=== PATIENT | male | born 1950 | race Caucasian/White ===

== ENCOUNTER 2020-08-28 06:05 | Day surgery (SDC) | payer OTHER ==
[~2020-08-28] VITALS: Ht 177.8 cm; Wt 98.0 kg
[~2020-08-28 06:05] MED LIST: AMLO10 PO; ASPI81CH PO; ATOR20 PO; Aspir 8181 MG PO; CLOP75 PO; DOCU100 PO; FLUO20 PO; HYDACE10B PO; HYDACE5 PO; HYDCHL25 PO; LISI20 PO; METO25ER PO; METO50ER PO; METPRE4DP PO; MULVITB&C PO; MULVITMINF PO; NITR.4SL SL; NITRODUR TOP; Norco 10-325 T1 EACH PO; OLME20 PO; OMEP20ER PO; OXYACE5T PO; PANT40 PO; Prilosec Otc20 MG PO; Prilosec20 MG PO; Prinivil10 MG PO; Prozac20 MG; Prozac40 MG PO; SIMV10 PO; Toprol Xl25 MG PO; VICODIN HP 10-1 EACH PO
--- NOTE | 2020-08-28 09:09 | NUR ---
PT VSS STABLE, DR SANCHEZ IN MULTIPLE TIMES, PT DISORIENTED AND PLAN IS TO BRING IN TO REVIEW PLAN OF CARE, PT SHIVERING, PLACED WARM BLANKETS AND AIR WARMER AN PT SLEEPING NOW. PLAN EARLIER WAS TO SEND TO [facility] FOR PCI, NO BEDS SO THEN PLAN WAS TO ADMIT BUT AT PRESENT MAY SEND PT HOME AFTER DISCUSSION WITH
--- NOTE | 2020-08-28 09:30 | NUR ---
PT S/O, SHITAL TO RECOVERY DISCUSSING PLAN OF CARE WITH PATIENT AND DR SANCHEZ. VSS. PT R RADIAL REMAINS STABLE. NO BLEEDING OR HEMATOMA NOTED
--- NOTE | 2020-08-28 10:15 | NUR ---
PT AND S/O RESTING COMFORTABLY. PT AND S/O HAVE DECIDED TO AWAIT THIS Thursday08/31/2020 FOR PT PCI OF LAD. PT WILL REST AT HOME AND NOT EXERT SELF UNTIL THEN. PT ADVISED TO GO TO EMERGENCY ROOM WITH ANY CP OR SYMPTOMS. PT AND S/O VERBALIZES UNDERSTANDING. DR SANCHEZ MADE AWARE, AND WILL SCHEDULE PATIENT FOR THIS THURSDAY.
--- NOTE | 2020-08-28 10:19 | NUR ---
ATTEMPTED TO RELEASE AIR FROM TR BAND. BLEEDING NOTED. TR BAND REINFLATED.
--- NOTE | 2020-08-28 10:45 | NUR ---
AIR FULLY DEPLOYED. NO BLEEDING OR HEMATOMA NOTED AT SITE. VSS. NADN. PT DENIES PAIN. PT AND S/O VERBALIZES UNDERSTANDING WRITTEN AND VERBAL ORDERS.
--- NOTE | 2020-08-28 11:00 | NUR ---
PT A&O X 4 PT DRESSES SELF WITHOUT DIFF. NADN. VSS. PT TR BAND REMOVED. DOT DRESSING APPLIED. PT R RADIAL REMAINS STABLE. SPLINT/ SLING APPLIED. PT IV DC'D. CATH INTACT. PRESSURE DSG APPLIED. PT DC'D TO HOME VIA S/O BY .
[2020-08-28] MEDS ORDERED: ATOR20 PO (11:31)
== END 2020-08-28 11:00 | disposition home or self-care (01) ==
LOC: MHTC 06:05
PROC: B2111ZZ Fluoroscopy of Multiple Coronary Arteries using Low Osmolar Contrast (ICD-10-PCS; principal; 2020-08-28)
DX: I25.118 Atherosclerotic heart disease of native coronary artery with other forms of angina pectoris (principal); I11.0 Hypertensive heart disease with heart failure; I50.9 Heart failure, unspecified; I45.10 Unspecified right bundle-branch block; I47.1 Supraventricular tachycardia; E78.5 Hyperlipidemia, unspecified; K21.9 Gastro-esophageal reflux disease without esophagitis; G89.29 Other chronic pain; M54.16 Radiculopathy, lumbar region; E66.9 Obesity, unspecified; Z86.73 Personal history of transient ischemic attack (TIA), and cerebral infarction without residual deficits; Z79.02 Long term (current) use of antithrombotics/antiplatelets; Z79.899 Other long term (current) drug therapy; Z79.82 Long term (current) use of aspirin; Z95.0 Presence of cardiac pacemaker; Z68.30 Body mass index [BMI] 30.0-30.9, adult; Z87.891 Personal history of nicotine dependence; Z88.8 Allergy status to other drugs, medicaments and biological substances
CPT/HCPCS: 93454; 99152; 99153; A9270; C1769; C1894; J1644; J2250; J3010; J7030; J7050; Q9967

== ENCOUNTER 2020-08-31 07:02 | Day surgery (SDC) | payer OTHER ==
[~2020-08-31] VITALS: Ht 177.8 cm; Wt 96.0 kg
[2020-08-31 07:33] LABS: BASOPHILS ABSOLUTE AUTO 0.03 K/mm3 (0.00-0.23); BASOPHILS PERCENT AUTO 1 % (0-2); EOSINOPHILS ABSOLUTE AUTO 0.25 K/mm3 (0.00-0.68); EOSINOPHILS PERCENT AUTO 5 % (0-6); Hematocrit 30.7 % (37.0-53.0); Hemoglobin 8.5 g/dL (13.5-17.5); IMMATURE GRAN ABSOLUTE AUTO 0.02 K/mm3 (0.00-0.10); IMMATURE GRAN PERCENT AUTO 0 % (0-1); LYMPHOCYTES ABSOLUTE AUTO 1.73 K/mm3 (0.84-5.20); LYMPHOCYTES PERCENT AUTO 32 % (21-46); MONOCYTES ABSOLUTE AUTO 0.54 K/mm3 (0.16-1.47); MONOCYTES PERCENT AUTO 10 % (4-13); Mean Corpuscular HGB 21.9 pg (26.0-34.0); Mean Corpuscular HGB Conc 27.7 g/dL (31.5-36.5); Mean Corpuscular Volume 79 fL (80-100); NEUTROPHILS ABSOLUTE AUTO 2.77 K/mm3 (1.96-9.15); NEUTROPHILS PERCENT AUTO 52 % (41-73); Platelet Count 346 K/mm3 (150-400); RDW Coefficient Variation 25.7 % (11.7-14.2); RDW Standard Deviation 70.9 fL (35.1-46.3); Red Blood Cell Count 3.88 M/mm3 (4.30-5.90); White Blood Cell Count 5.34 K/mm3 (4.00-11.30)
[2020-08-31 07:56] LABS: Anion Gap 5 mmol/L (6-16); Blood Urea Nitrogen 26 mg/dL (8-24); Bun/Creatinine Ratio 25.7 (12.0-20.0); CO2, Blood 27 mmol/L (21-32); Calcium, Blood 8.4 mg/dL (8.5-10.1); Chloride, Blood 110 mmol/L (98-108); Creatinine, Blood 1.01 mg/dL (0.60-1.20); Glomerular Filtration Rate >60 (60-); Glucose, Blood 103 mg/dL (70-99); Potassium, Blood 4.6 mmol/L (3.5-5.5); Sodium, Blood 142 mmol/L (136-145)
--- NOTE | 2020-08-31 09:31 | NUR ---
PT RETURN TO RECOVERY ROOM IN RECLINER, RIGHT RADIAL TR BAND SITE SOFT NON-TENDER WITH NO HEMATOMA, NO PULSATILE BLEEDING. PT DENIES CP. CALL LIGHT IN REACH. PT'S IN ROOM.
--- NOTE | 2020-08-31 10:17 | NUR ---
PT EATING BREAKFAST.
--- NOTE | 2020-08-31 10:39 | NUR ---
DR CONKLIN IN ROOM TO SEE PT.
--- NOTE | 2020-08-31 11:26 | NUR ---
SBAR FROM KARIN WESTON. PATEIMT IN RECLINER AND WATCHING TV. BEGAN REMOVING AIR FROM THE TR BAND TO THE RIGHT RADIAL. NO BLEEDING NOTED.
--- NOTE | 2020-08-31 11:37 | NUR ---
TR BAND FLAT, NO BLEEDING NOTED. VVS. RELAXING IN RECLINER, NO PAIN NOTED FROM JESSI PATIENT, CALL LIGHT IN REACH.
--- NOTE | 2020-08-31 13:32 | NUR ---
DEFLATED RIGHT TR BAND REMOVED AND POLYMEM PLACED OVER RIGHT RADIAL SITE; NO HEMATOMA, NO PULSATILE BLEEDING SOFT AND WRIST BOARD IN PLACE. DISCHARGE INSTRUCTIONS REVIEWED AND ALL QUESTIONS ANSWERED. PT AMBULATED TO BR TO VOID. CALL LIGHT IN REACH.
--- NOTE | 2020-08-31 14:43 | NUR ---
NO CHANGES TO RIGHT RADIAL SITE; NO HEMATOMA, NO PULSATILE BLEEDING AND SOFT WITH POLYMEM AND WRIST BOARD IN PLACE. 20 G IV DISCONTINUED FROM LEFT AC WITH INTACT CANNULA. PT ESCORTED OUT VIA WHEELCHAIR ESCORT.
== END 2020-08-31 14:45 | disposition home or self-care (01) ==
LOC: MHTC 07:02
PROVIDERS: Internal Medicine Interventional Cardiology
PROC: B2111ZZ Fluoroscopy of Multiple Coronary Arteries using Low Osmolar Contrast (ICD-10-PCS; principal; 2020-08-31)
PROC: 027034Z Dilation of Coronary Artery, One Artery with Drug-eluting Intraluminal Device, Percutaneous Approach (ICD-10-PCS; principal; 2020-08-31)
DX: I25.118 Atherosclerotic heart disease of native coronary artery with other forms of angina pectoris (principal); I11.0 Hypertensive heart disease with heart failure; I50.9 Heart failure, unspecified; E66.3 Overweight; I47.1 Supraventricular tachycardia; I45.10 Unspecified right bundle-branch block; Z79.02 Long term (current) use of antithrombotics/antiplatelets; Z79.899 Other long term (current) drug therapy; Z79.82 Long term (current) use of aspirin; Z20.822 Contact with and (suspected) exposure to COVID-19; Z86.73 Personal history of transient ischemic attack (TIA), and cerebral infarction without residual deficits; Z95.0 Presence of cardiac pacemaker; Z68.41 Body mass index [BMI] 40.0-44.9, adult
CPT/HCPCS: 76937; 80048; 85025; 85347; 99152; 99153; A9270-GY; C1769; C1874; C1887; C1894; C9600; J1644; J2405; J3010; J7030; J7050; Q9967

== ENCOUNTER 2021-02-18 11:10 | Observation (INO) | payer OTHER ==
[~2021-02-18] VITALS: Ht 175.3 cm; Wt 96.9 kg
[~2021-02-18 11:10] MED LIST changes: -HYDACE10B PO
[2021-02-18 12:02] LABS: BASOPHILS ABSOLUTE AUTO 0.02 K/mm3 (0.00-0.23); BASOPHILS PERCENT AUTO 0 % (0-2); EOSINOPHILS ABSOLUTE AUTO 0.08 K/mm3 (0.00-0.68); EOSINOPHILS PERCENT AUTO 1 % (0-6); Hematocrit 39.3 % (37.0-53.0); Hemoglobin 12.6 g/dL (13.5-17.5); IMMATURE GRAN ABSOLUTE AUTO 0.01 K/mm3 (0.00-0.10); IMMATURE GRAN PERCENT AUTO 0 % (0-1); LYMPHOCYTES ABSOLUTE AUTO 2.33 K/mm3 (0.84-5.20); LYMPHOCYTES PERCENT AUTO 29 % (21-46); MONOCYTES PERCENT AUTO 7 % (4-13); Mean Corpuscular HGB 28.5 pg (26.0-34.0); Mean Corpuscular HGB Conc 32.1 g/dL (31.5-36.5); Mean Corpuscular Volume 89 fL (80-100); Mean Platelet Volume 9.4 fL (9.1-12.4); NEUTROPHILS ABSOLUTE AUTO 5.04 K/mm3 (1.96-9.15); NEUTROPHILS PERCENT AUTO 63 % (41-73); Platelet Count 335 K/mm3 (150-400); RDW Coefficient Variation 17.7 % (11.7-14.2); RDW Standard Deviation 58.4 fL (35.1-46.3); Red Blood Cell Count 4.42 M/mm3 (4.30-5.90); White Blood Cell Count 8.08 K/mm3 (4.00-11.30)
[2021-02-18 12:13] LABS: Alanine Aminotransfer (ALT/SGP 29 U/L (12-78); Albumin, Blood 3.6 g/dL (3.4-5.0); Albumin/Globulin Ratio 1.1 (0.8-1.8); Alk Phos 36 U/L (50-136); Anion Gap 4 mmol/L (6-16); Aspartate Aminotrans (AST/SGOT 17 U/L (12-37); Bilirubin, Total 0.4 mg/dL (0.1-1.0); Blood Urea Nitrogen 14 mg/dL (8-24); Bun/Creatinine Ratio 15.6 (12.0-20.0); CO2, Blood 27 mmol/L (21-32); Calcium, Blood 8.8 mg/dL (8.5-10.1); Chloride, Blood 108 mmol/L (98-108); Globulin, Blood 3.3 g/dL (2.2-4.0); Glomerular Filtration Rate >60 (60-); Glucose, Blood 106 mg/dL (70-99); Potassium, Blood 4.4 mmol/L (3.5-5.5); Sodium, Blood 139 mmol/L (136-145); Total Protein, Blood 6.9 g/dL (6.4-8.2); Troponin I <0.015 ng/mL (0.000-0.040)
--- NOTE | 2021-02-18 15:15 | NUR ---
[facility] Received report from John WANG RN. Patient arrived via w/c to room 363 with personal beloings and at side. Independently transferred from w/c to bed. Settled to room. Call light nearby. C/O mild 3/10 acute chest pain and 7/10 chronic back pain. Medicate per EMAR. WCTM.
--- NOTE | 2021-02-18 18:01 | NUR ---
Shift Summary AOx4, pleasant and cooperative with care. Up independently in room and to bathroom. Calls appropriately for needs. Verified home dose/frequency of [place] (patient takes 1 tab [place] 10/325 QID PRN for pain). Per T.O. from kvein Moreno to resume home med. EMAR updated. Patient also reports taking 2 tabs in AM and 2 tabs at bedtime for back pain. C/O 3-4 chest pain, Tele: SR 80's. VSS, afebrile. WCTM.
[2021-02-19 05:06] LABS: Anion Gap 3 mmol/L (6-16); Blood Urea Nitrogen 17 mg/dL (8-24); Bun/Creatinine Ratio 14.7 (12.0-20.0); CO2, Blood 32 mmol/L (21-32); Chloride, Blood 104 mmol/L (98-108); Creatinine, Blood 1.16 mg/dL (0.60-1.20); Glomerular Filtration Rate >60 (60-); Glucose, Blood 104 mg/dL (70-99); Magnesium, Blood 2.4 mg/dL (1.6-2.4); Potassium, Blood 4.3 mmol/L (3.5-5.5); Sodium, Blood 139 mmol/L (136-145)
--- NOTE | 2021-02-19 05:52 | NUR ---
UPS DRIVER SUMMARY NO ACUTE CHANGES THIS SHIFT. PT AAOX4 AND INDEPENDENT IN ROOM. DENIES CP OR SOB TONIGHT. TROPONIN NEGATIVE X3. PT HAS EXTREME CHRONIC BACK PAIN WITH A HX OF SEVERAL BACK SURGERIES. PT HAS NORCO 10/325 QID ORDER, HOWEVER PT STATES AT HOME HE TAKES 2 TABS IN THE MORNING AND 2 TABS AT NIGHT. RECIEVED ORDER FROM DR GUZMAN TO CHANGE ORDER TO REFLECT HOW PT TAKES MED AT HOME. PT HAS BEEN NPO SINCE 0400 FOR STRESS TEST LATER TODAY. VSS, WILL CONTINUE TO MONITOR.
--- NOTE | 2021-02-19 11:23 | NUR ---
REMOVE TELE FOR SHOWER PATIENT DENYING CHEST PAIN. REQUESTING FOR A SHOWER. PER V.O. FROM AYANNA ZAMUDIO TO REMOVE TELE FOR SHOWER. ORDER UPDATED.
--- NOTE | 2021-02-19 16:03 | NUR ---
Shift Summary AOx4, had first portion of stress test completed today. Plan for second part tomorrow afternoon per NM tech. Remains independent in room, appetite is good. Denies chest pain/discomfort/tightness, shortness of breath. Overall, states feeling much better today, easier to breathe, feeling less bloated. Medicate for back pain per EMAR with good effect. Tele: SR. No acute changes, WCTM.
--- NOTE | 2021-02-20 03:35 | NUR ---
Very Pleasant 70 year old [employer] with CAD Pacemaker Cardiac stent x 1 had admission for chest pain yesterday. He is on Tele monitor with no apparnt pacing spikes. He has BBB rate in 70s 80s. Alert active denies chest pain. HAd 1st part of cardiac stress test 2nd part pending this afternoon. Planning NPO after breakfast. Suzie in & supportive. PT on plavix asa 81 mg & lovenox. PT has multiple cardiac meds. Chronic back pain controlled lower back rt leg pain on scheduled norco 10/325 mg tab two. Indep in room .
[2021-02-20 05:54] LABS: BASOPHILS ABSOLUTE AUTO 0.03 K/mm3 (0.00-0.23); BASOPHILS PERCENT AUTO 0 % (0-2); EOSINOPHILS ABSOLUTE AUTO 0.16 K/mm3 (0.00-0.68); EOSINOPHILS PERCENT AUTO 2 % (0-6); Hematocrit 40.6 % (37.0-53.0); Hemoglobin 12.8 g/dL (13.5-17.5); IMMATURE GRAN ABSOLUTE AUTO 0.02 K/mm3 (0.00-0.10); IMMATURE GRAN PERCENT AUTO 0 % (0-1); LYMPHOCYTES ABSOLUTE AUTO 2.85 K/mm3 (0.84-5.20); LYMPHOCYTES PERCENT AUTO 36 % (21-46); MONOCYTES ABSOLUTE AUTO 0.83 K/mm3 (0.16-1.47); MONOCYTES PERCENT AUTO 11 % (4-13); Mean Corpuscular HGB 28.1 pg (26.0-34.0); Mean Corpuscular HGB Conc 31.5 g/dL (31.5-36.5); Mean Corpuscular Volume 89 fL (80-100); Mean Platelet Volume 9.6 fL (9.1-12.4); NEUTROPHILS ABSOLUTE AUTO 3.94 K/mm3 (1.96-9.15); NEUTROPHILS PERCENT AUTO 50 % (41-73); Platelet Count 330 K/mm3 (150-400); Red Blood Cell Count 4.56 M/mm3 (4.30-5.90); White Blood Cell Count 7.83 K/mm3 (4.00-11.30)
[2021-02-20 06:14] LABS: Albumin, Blood 3.5 g/dL (3.4-5.0); Anion Gap 5 mmol/L (6-16); Blood Urea Nitrogen 34 mg/dL (8-24); Bun/Creatinine Ratio 25.8 (12.0-20.0); CO2, Blood 31 mmol/L (21-32); Calcium, Blood 8.8 mg/dL (8.5-10.1); Chloride, Blood 103 mmol/L (98-108); Creatinine, Blood 1.32 mg/dL (0.60-1.20); Glomerular Filtration Rate 57 (60-); Glucose, Blood 92 mg/dL (70-99); Magnesium, Blood 2.6 mg/dL (1.6-2.4); Phosphorus, Blood 5.9 mg/dL (2.5-4.9); Sodium, Blood 139 mmol/L (136-145); Troponin I <0.015 ng/mL (0.000-0.040)
[2021-02-20] MEDS ORDERED: TORSE20 PO (17:23)
--- NOTE | 2021-02-20 17:57 | NUR ---
PATIENT DISCHARGED TO HOME WITH SPOUSE. IV SALINE LOCK REMOVED WITHOUT INCIDENT. PATIENT VERBALIZED UNDERSTANDING OF D/C INSTRUCTIONS, INCLUDING THAT HE NEEDS TO CALL DR. SANCHEZ'S OFFICE AND HIS PCP TO MAKE F/U APPOINTMENTS THE OFFICES WERE CLOSED AT TIME OF D/C. UNDERSTOOD CHANGES TO MEDICATION DOSES. OFF UNIT VIA W/C AT 1745.
== END 2021-02-20 17:55 | disposition home or self-care (01) ==
LOC: ER 11:10 → MEDS 11:11
PROVIDERS: Family Medicine; Internal Medicine Cardiovascular Disease; Physician Assistant; ADMIT Internal Medicine
DX: R07.89 Other chest pain (principal); I11.0 Hypertensive heart disease with heart failure; I50.30 Unspecified diastolic (congestive) heart failure; I25.10 Atherosclerotic heart disease of native coronary artery without angina pectoris; I49.5 Sick sinus syndrome; E78.5 Hyperlipidemia, unspecified; G89.29 Other chronic pain; M54.9 Dorsalgia, unspecified; K21.9 Gastro-esophageal reflux disease without esophagitis; E66.9 Obesity, unspecified; Z95.5 Presence of coronary angioplasty implant and graft; Z95.0 Presence of cardiac pacemaker; Z88.8 Allergy status to other drugs, medicaments and biological substances; Z98.1 Arthrodesis status; Z68.31 Body mass index [BMI] 31.0-31.9, adult; Z87.891 Personal history of nicotine dependence; Z79.02 Long term (current) use of antithrombotics/antiplatelets; Z79.82 Long term (current) use of aspirin
CPT/HCPCS: 36415; 71046; 78452; 80048; 80053; 80069; 83735; 83880; 84443; 84484; 85025; 85651; 86141; 93005; 93010; 93017; 96372; 99285-25; A9270; A9500; G0378; J0706; J1650; J2785

== ENCOUNTER 2021-06-11 09:38 | Day surgery (SDC) | payer OTHER ==
[~2021-06-11] VITALS: Ht 175.3 cm; Wt 99.5 kg
[~2021-06-11 09:38] MED LIST changes: +TORSE20 PO
--- NOTE | 2021-06-11 10:28 | NUR ---
Ambulatory in Day Surgery History, Chart, Medications and Allergies reviewed before start of procedure. Pre-Op teaching done. Pt verbalizes understanding. Patient States Post-Procedure ride home has been arranged.
--- NOTE | 2021-06-11 11:11 | NUR ---
06/11/21 Sendy Flores History, Chart, Medications and Allergies reviewed before start of procedure.PATIENT DETERMINED TO BE ASA APPROPRIATE FOR PROPOFOL SEDATION PRIOR TO START OF PROCEDURE BY .MONITOR INTACT WITH CONTINUOUS PULSE OXIMETRY AND INTERMITTENT BP.3-LEAD EKG REVIEWED WITH PHYSICIAN PRIOR TO START OF PROCEDURE.O2 VIA N/C INTACT THROUGHOUT SEDATION/PROCEDURE.
--- NOTE | 2021-06-11 12:23 | NUR ---
Discharge instructions reviewed with patient. Patient verbalizes understanding. Copy given to patient to take home. Patient States Post-Procedure ride home has been arranged. Discharged via wheelchair to private car for ride home.
== END 2021-06-11 12:12 | disposition home or self-care (01) ==
LOC: ORSCMMR 09:38 → ORSCSDS 10:30 → ORD 10:30 → ORSCMMR 10:30
PROVIDERS: Surgery
PROC: 0DJD8ZZ Inspection of Lower Intestinal Tract, Via Natural or Artificial Opening Endoscopic (ICD-10-PCS; principal; 2021-06-11 10:30)
DX: Z12.11 Encounter for screening for malignant neoplasm of colon (principal); Z86.010 Personal history of colon polyps; I10 Essential (primary) hypertension; E66.9 Obesity, unspecified; Z68.32 Body mass index [BMI] 32.0-32.9, adult; Z87.891 Personal history of nicotine dependence; Z79.82 Long term (current) use of aspirin; Z79.899 Other long term (current) drug therapy
CPT/HCPCS: J2704; J7120

== ENCOUNTER 2021-06-26 02:22 | Day surgery (SDC) | payer OTHER | END 2021-06-26 17:14 | disposition home or self-care (01) | LOC: ATC 02:22 | DX: D50.9 Iron deficiency anemia, unspecified (principal); I10 Essential (primary) hypertension; K21.9 Gastro-esophageal reflux disease without esophagitis; Z79.82 Long term (current) use of aspirin; Z79.899 Other long term (current) drug therapy | CPT/HCPCS: 36430; 86850; 86900; 86901; 86923; J7050; P9016 ==

== ENCOUNTER → 2021-07-08 | Outpatient (CLI) | payer OTHER ==
[2021-07-08 14:12] LABS: BASOPHILS ABSOLUTE AUTO 0.05 K/mm3 (0.00-0.23); BASOPHILS PERCENT AUTO 1 % (0-2); EOSINOPHILS ABSOLUTE AUTO 0.18 K/mm3 (0.00-0.68); EOSINOPHILS PERCENT AUTO 2 % (0-6); Hematocrit 28.8 % (37.0-53.0); Hemoglobin 8.2 g/dL (13.5-17.5); IMMATURE GRAN ABSOLUTE AUTO 0.02 K/mm3 (0.00-0.10); IMMATURE GRAN PERCENT AUTO 0 % (0-1); LYMPHOCYTES ABSOLUTE AUTO 2.55 K/mm3 (0.84-5.20); LYMPHOCYTES PERCENT AUTO 28 % (21-46); MONOCYTES ABSOLUTE AUTO 0.74 K/mm3 (0.16-1.47); MONOCYTES PERCENT AUTO 8 % (4-13); Mean Corpuscular HGB Conc 28.5 g/dL (31.5-36.5); Mean Corpuscular Volume 77 fL (80-100); Mean Platelet Volume 9.5 fL (9.1-12.4); NEUTROPHILS ABSOLUTE AUTO 5.66 K/mm3 (1.96-9.15); NEUTROPHILS PERCENT AUTO 62 % (41-73); NRBC ABSOLUTE 0.02 K/mm3 (0.00-0.02); NRBC Auto 0.2 /100 WBC (0.0-0.2); Platelet Count 621 K/mm3 (150-400); RDW Coefficient Variation 19.1 % (11.7-14.2); RDW Standard Deviation 53.1 fL (35.1-46.3); Red Blood Cell Count 3.72 M/mm3 (4.30-5.90)
== END | disposition home or self-care (01) ==
LOC: LAB SHORT 13:48 → PLD 13:48
PROVIDERS: Internal Medicine Hematology & Oncology
DX: D64.9 Anemia, unspecified (principal)
CPT/HCPCS: 85025

== ENCOUNTER 2022-01-08 08:43 | Emergency (ER) | payer OTHER ==
[~2022-01-08] VITALS: Ht 175.3 cm; Wt 95.2 kg
[2022-01-08] MEDS ORDERED: METO100ER (09:00)
[2022-01-08] MEDS ORDERED: TRIDERM28.4 GM TOP (09:02)
== END 2022-01-08 09:11 | disposition home or self-care (01) ==
LOC: ER 08:43
DX: S90.561A Insect bite (nonvenomous), right ankle, initial encounter (principal); W57.XXXA Bitten or stung by nonvenomous insect and other nonvenomous arthropods, initial encounter; I10 Essential (primary) hypertension; I25.10 Atherosclerotic heart disease of native coronary artery without angina pectoris; Z88.8 Allergy status to other drugs, medicaments and biological substances; Z79.899 Other long term (current) drug therapy; Z87.891 Personal history of nicotine dependence
CPT/HCPCS: 90714

== ENCOUNTER 2022-01-14 12:13 | Day surgery (SDC) | payer OTHER ==
[~2022-01-14] VITALS: Ht 175.3 cm; Wt 96.4 kg
[~2022-01-14 12:13] MED LIST changes: +METO100ER; +TRIDERM28.4 GM TOP
[2022-01-14] MEDS ORDERED: CYMBALTA30 M1 (12:30)
[2022-01-14] MEDS ORDERED: TAMS.4ER (12:31)
[2022-01-14] MEDS ORDERED: HEMATEX (12:31)
[2022-01-14] MEDS ORDERED: SUCR1 (12:32)
[2022-01-14] MEDS ORDERED: FAMO40 (12:32)
== END 2022-01-14 13:45 | disposition home or self-care (01) ==
LOC: ORSCSDS 12:13
PROVIDERS: Student in an Organized Health Care Education/Training Program
PROC: 0DB98ZX Excision of Duodenum, Via Natural or Artificial Opening Endoscopic, Diagnostic (ICD-10-PCS; principal; 2022-01-14 14:00)
PROC: 0DB78ZX Excision of Stomach, Pylorus, Via Natural or Artificial Opening Endoscopic, Diagnostic (ICD-10-PCS; principal; 2022-01-14 14:00)
PROC: 0DB48ZX Excision of Esophagogastric Junction, Via Natural or Artificial Opening Endoscopic, Diagnostic (ICD-10-PCS; principal; 2022-01-14 14:00)
DX: D50.9 Iron deficiency anemia, unspecified (principal); K21.9 Gastro-esophageal reflux disease without esophagitis; K44.9 Diaphragmatic hernia without obstruction or gangrene; K29.70 Gastritis, unspecified, without bleeding; Z79.02 Long term (current) use of antithrombotics/antiplatelets; I10 Essential (primary) hypertension; Z87.891 Personal history of nicotine dependence; Z79.899 Other long term (current) drug therapy; Z79.82 Long term (current) use of aspirin
CPT/HCPCS: 88305; 88342; J2704; J7120

== ENCOUNTER 2022-12-15 14:21 | Emergency (ER) | payer OTHER ==
[~2022-12-15] VITALS: Ht 175.3 cm; Wt 93.0 kg
[~2022-12-15 14:21] MED LIST changes: +CYMBALTA30 M1; +FAMO40; +HEMATEX; +SUCR1; +TAMS.4ER
[2022-12-15 14:32] VITALS: BP 131/84
== END 2022-12-15 16:01 | disposition home or self-care (01) ==
LOC: ER 14:21
DX: M25.531 Pain in right wrist (principal); I10 Essential (primary) hypertension; I25.10 Atherosclerotic heart disease of native coronary artery without angina pectoris; W18.09XA Striking against other object with subsequent fall, initial encounter; Z88.8 Allergy status to other drugs, medicaments and biological substances; Z79.899 Other long term (current) drug therapy; Z95.0 Presence of cardiac pacemaker
CPT/HCPCS: 73110; 99283-25

== ENCOUNTER → 2024-12-27 | Outpatient (CLI) | payer OTHER | LOC: LAB 13:36 → LAB SHORT 13:36 | DX: D48.5 Neoplasm of uncertain behavior of skin (principal) | CPT/HCPCS: 88305; 88312 ==

== ENCOUNTER → 2025-05-01 | Outpatient (CLI) | payer OTHER ==
[2025-05-01 16:54] LABS: Source, Urine Voided
[2025-05-01 18:08] LABS: White Blood Cells, Urine 0-2 /hpf (0-5)
== END ==
LOC: LAB 16:53 → LAB SHORT 16:53
PROVIDERS: Urology
DX: N40.1 Benign prostatic hyperplasia with lower urinary tract symptoms (principal); R35.1 Nocturia
CPT/HCPCS: 81015

== ENCOUNTER → 2025-05-19 | Outpatient (CLI) | payer OTHER | END | disposition home or self-care (01) | LOC: LAB SHORT 08:16 → LAB 08:16 | DX: L57.0 Actinic keratosis (principal) | CPT/HCPCS: 88305 ==